=== PATIENT | female | born 1985 | race Hispanic/Latino ===

== ENCOUNTER 2016-12-14 12:23 | Emergency (ER) | payer OTHER ==
[2016-12-14 13:20] VITALS: RESP 15; TEMP 97.1
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
== END 2016-12-14 14:42 | disposition home or self-care (01) ==
LOC: ER 12:23
DX: S20.212A Contusion of left front wall of thorax, initial encounter (principal); S40.811A Abrasion of right upper arm, initial encounter; S50.11XA Contusion of right forearm, initial encounter; S40.022A Contusion of left upper arm, initial encounter; S39.012A Strain of muscle, fascia and tendon of lower back, initial encounter; Y04.2XXA Assault by strike against or bumped into by another person, initial encounter
CPT/HCPCS: 71020; 72100; 73090; 99283

== ENCOUNTER 2017-01-12 22:45 | Emergency (ER) | payer OTHER ==
[2017-01-12 22:57] LABS: BILIRUBIN,URINE NEGATIVE (NEG); CLARITY,URINE Slightly Clo (CLEAR); GLUCOSE, URINE (UA) NEGATIVE (NEG); LEUKOCYTE ESTERASE ,URINE MODERATE (NEG); NITRATE,URINE NEGATIVE (NEG); OCCULT BLOOD,URINE LARGE (NEG); PH,URINE 6.5 (5.0-8.5); PROTEIN,URINE 100 mg/dl (NEG)
[2017-01-12 22:58] LABS: URINE SAMPLE TYPE CLEAN CATCH URINE
[2017-01-12 23:01] LABS: BACTERIA,URINE MODERATE; RBC,URINE 25-30 /hpf; SQUAMOUS EPITHELIAL CELL,UR RARE; WBC,URINE 15-20
[2017-01-12] MEDS ORDERED: SULFAMETHOXAZOLE/TRIMETHOPRIM 800/160 MG TABLET PO ONE (23:13)
[2017-01-12] MEDS ORDERED: Phenazopyridine Tab 200 MG TAB PO ONE (23:21)
[2017-01-13 02:12] VITALS: RESP 16; TEMP 97.8
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
== END 2017-01-12 23:22 | disposition home or self-care (01) ==
LOC: ER 22:45
DX: N39.0 Urinary tract infection, site not specified (principal); R30.0 Dysuria
CPT/HCPCS: 81001; 81003; 87077; 87088; 87186; 99282

== ENCOUNTER 2017-06-01 22:55 | Emergency (ER) | payer OTHER ==
[2017-06-01 23:07] VITALS: RESP 18; TEMP 97.9
--- NOTE | 2017-06-02 03:45 | PDOC ---
Lower Extremity Injury HPI - General Chief Complaint: Lower Extremity Problem/Injury Stated Complaint: LEFT KNEE PAIN Date Seen by Provider: 06/01/17 Time Seen by Provider: 22:55 Source: POSITIVE: Patient Exam Limitations: POSITIVE: No limitations Nurse's Notes Reviewed & Considered: Yes - History of Present Illness Initial Comments: The patient is a 31-year-old female. She states that approximately 3-1/2 days [employer] she was jogging and she began to experience discomfort to her left knee, primarily over the medial and inferior aspect. She denies any falls or direct trauma. She did not hear any snap sure pops. No sensory, motor or vascular symptoms. She denies any hip or ankle or other pain. She's had a hysterectomy. Have you received a tetanus shot in the past 10 years?: Yes Body Location Affected: REPORTS: Lower Extremity (L) Timing: REPORTS: Constant, Gradual Duration: <1 week (Onset approximately 3-1/2 days [employer]) Severity: Moderate Quality: REPORTS: "Pain" Context of Injury: REPORTS: Other (Onset while running). DENIES: Fall, Twist, Direct Blow, Incision, Burn, Crush, Stab, Prolonged Pressure on Ext Location of Injury: REPORTS: Knee (L) Modifying Factors: improves with: Walking Associated Symptoms: DENIES: Unable to Bear Weight, Snapping, Popping Sensation , Became Dizzy, Fainted, Seizure, Other Any Prior Injuries Related to Current Complaint?: No - Patient Home Medications Home Medications: Home Medications Triamcinolone Acetonide [Kenalog-40] 1 ml SUBCUT ONCE #1 ml 05/30/17 Aspirin/Acetaminophen/Caffeine [Excedrin Extra Strength Caplet] 1 each PO PRN - Patient Allergies Allergies/Adverse Reactions: Allergies Allergy/AdvReac Type Severity Reaction Status Date / Time bupropion HCl Allergy hives Verified 06/01/17 22:58 [From Wellbutrin] ibuprofen Allergy angioedema Verified 06/01/17 22:58 dextromethorphan HBr AdvReac N V, Verified 06/01/17 22:58 [From Robitussin-DM] diarrhea guaifenesin AdvReac N V, Verified 06/01/17 22:58 [From Robitussin-DM] diarrhea Past Medical History - heen HEENT History: Other (please comment) Additional HEENT History: hole in right eardrum. CONTACTS AND GLASSES. Cardiovascular History: Denies History Respiratory History: Other (please comment) Additional Respiratory History: ALLERGIES Gastrointestinal History: Other (please comment) Additional Gastrointestinal History: Hx of a cholecystectomy. Genitourinary History: Kidney Stones, Other (please comment) Additional Genitourinary History: BILATRAL URETERAL STENTS Endocrine History: Denies History Musculoskeletal History: Back Pain, Carpal Tunnel Prosthesis or Implant: No Additional Musculoskeletal History: hx of left ankle tendon repair. Neurological History: Denies History Blood Disorders: Denies History Psychiatric History: Depression, Bi Polar Disorder, Anxiety Disorders History of Sexually Transmitted Diseases: No Female Reproductive History: Denies History Obstetrical History: Denies History Cancer History: Denies History In Past Year Been Physically Harmed or Verbally Threatened: No History of MDRO: Yes Type of MDRO: MRSA Other Type of MDRO: MRSA History of Other Communicable Diseases: No Tobacco Use: Current Every Day Smoker Alcohol Use: None Substance Use Type: None Previous Surgical History: Yes Type / Date of Surgery: COLONOSCOPY 11/2015. CHOLECYSTECTOMY 2005. BILAT TUBAL LIGATION 2012. LEFT ANKLE TENDON REPAIR. BILATERAL URETERAL STENTS Anesthesia Reactions: No Malignant Hyperthermia: No Significant Family History: No pertinent family hx Past Medical History Reviewed: Reviewed - No Changes ROS - Limitations ROS Limitations: No Limitations Constitution: REPORTS: Denies Symptoms Cardiovascular: REPORTS: Denies Cardiac Symptoms Respiratory: REPORTS: Denies Resp Symptoms Neurological: REPORTS: Denies Neuro Symptoms Gastrointestinal: REPORTS: Denies GI Symptoms Endocrine: REPORTS: Denies Symptoms Musculoskeletal: REPORTS: Joint Pain (Left knee), Recent Injury (As above) Genitourinary: REPORTS: Denies Symptoms Eyes: REPORTS: Denies Symptoms ENT: REPORTS: Denies Symptoms Skin: REPORTS: Denies Skin Symptoms Lympathic: REPORTS: Denies Lympathic Symptoms Immunologic: POSITIVE: Denies Symptoms Psychiatric: POSITIVE: Denies Psych Symptoms Lower Ext Complaint Exam - General Appearance General Appearance: POSITIVE: Alert, Cooperative, No Acute Distress, No Evidence of Trauma Reflexes: Patellar (L): 2+, Radial (R): 2+ - Extremities Lower Extremity: POSITIVE: Normal ROM, Normal Color, Normal Temperature, Skin Intact, No Evidence of Ischemia, Stable, Soft Tissue Tenderness, Bony Tenderness , Swelling (Mild, left knee), See Diagram. NEGATIVE: No Joint Swelling (Mild swelling left knee), Ecchymosis, Erythema, Deformity, Pulse Deficit, Limited ROM , Laxity of Ligaments, Joint Effusion, Hip Pain on Leg Movement Lower Extremity Ligament: POSITIVE: Pain on Medial Stress. NEGATIVE: Pain on Anterior Drawer, Pain on Posterior Drawer, Laxity on Anterior Drawer, Laxity w/ Posterior Drawer, Pain on Lateral Stress, Laxity on Medial Stress, Laxity on Lateral Stress Gait: POSITIVE: Antalgic Gait Neurovascular/Tendon: POSITIVE: Sensation Normal, Motor Normal, No Vascular Compromise Skin: POSITIVE: Warm, Dry - Neck / Back Neck/Back: POSITIVE: Normal Inspection, Non-Tender, Painless ROM - Respiratory / CVS Respiratory / CVS: POSITIVE: Chest Non Tender, No Ecchymosis, Breath Sounds Normal, No Respiratory Distress, Heart Sounds Normal, Regular Rate/Rhythm Peripheral Pulses: Radial (R): 2+, Radial (L): 2+, Dorsalis-pedis (R): 2+, Dorsalis-pedis (L): 2+ Images - Lower Extremities Lower Extremities: 1 - Area of pain on palpation and medial stress Procedures - Splinting Time Splint Applied: 23:25 Location: knee immobilizer, left Pre-Proc Neuro Vasc Exam: Normal Splint Type: Knee Immobilizer (Left) Splint Form: Long Extremity Applied By:: Can Solderer Lower Ext Complaint Progress - Results Reviewed by me Xrays/CTs/US Reviewed by me: Yes Discussed with Radiologist: No Radiology Findings: No fractures or dislocations seen by me; radiologist interpretation pending - Patient's Progress Pain Medication Addressed: POSITIVE: Yes (Recommended Advil or Tylenol) School/Work Release Addressed: POSITIVE: Not Applicable Re-Examine Time:: 23:35 Re-Examine Comment: Some improvement in discomfort after knee immobilizer placement Status: POSITIVE: Improved, Re-Examined - Consult Counseled: POSITIVE: Patient, RE: Radiology Results, RE: DX, RE: Need for F/U Patient Care Time - Estimated PCT Patient Care Time (In Minutes): 27 Vital Signs - Recent Vital Signs Vital Signs: Vital Signs (Last 8 hours) Temp Pulse Resp BP Pulse Ox 06/01/17 22:57 97.9 F 80 18 121/82 95 - VS Reviewed Vital Signs Reviewed: Yes Discharge Clinical Impression: Knee sprain Discharge Disposition: Discharged to Home Condition: Stable Patient Instructions Given at Discharge: Knee Sprain (ED), Knee Immobilizer (ED ) Additional Instructions: X-ray of your left knee is normal. You have no fractures or dislocations. I believe you have a sprain to your left knee. Please wear knee immobilizer for 10-14 days. You may remove this to shower. Reduce weightbearing. Elevate leg. Advil or Tylenol for pain. Follow-up with your primary care provider in 10-14 days if not improving. Return here as necessary. Follow Up With: HALEY ALTAMIRANO [Primary Care Provider] - (Instructions as above. Follow-up with your primary care provider. Return here as necessary.)
--- NOTE | 2017-06-02 11:58 | DI ---
LEFT KNEE, 06/01/2017 10:36 PM: Clinical History: Left knee pain. Previous Exam: 02/16/2014. 3 views are submitted. There is no acute soft tissue, osseous, or joint abnormality. There has been n o interval change. Reading: Normal left knee exam.
== END 2017-06-01 23:59 | disposition home or self-care (01) ==
LOC: ER 22:55
DX: S83.92XA Sprain of unspecified site of left knee, initial encounter (principal); Y93.02 Activity, running
CPT/HCPCS: 73562; 99282

== ENCOUNTER → 2017-06-11 | Outpatient (CLI) | payer OTHER ==
--- NOTE | 2017-06-11 19:53 | DI ---
MRI LEFT KNEE SCAN, 06/11/2017 12:52 PM: Clinical History: Left knee pain with decreased range of motion. Previous Exam: 02/19/2014. Technique: Axial, coronal, and sagittal PD and fat saturated PD; axial T1 weighted. There is no soft tissue edema. There is a very small joint effusion, slightly larger than a physiolog ic amount. Abnormally increased signal intensity is present throughout the medial tibial plateau and extending into the metaphysis of the proximal portion of the tibia medially. This hyperintensity is i ndicative of a bone contusion. No definite fracture line is identified. There is intermediate signal intensity in the anterior aspect of the medial collateral ligament and the medial patellofemoral liga ment, and at the attachment of the lateral collateral ligament to the lateral femoral condyle consist ent with chronic partial tears. The anterior aspect of both bundles of the anterior cruciate ligament shows increased signal intensity consistent with partial tears of both bundles. The posterior crucia te ligament is normal. The medial and lateral menisci and the quadriceps and popliteus tendons and th e tendons of the medial and lateral heads of the gastrocnemius muscle are normal. There is increased signal intensity in the proximal portion of the patellar tendon consistent with mild tendinosis. The articular surfaces of all 3 compartments are intact. Readin. There are partial tears of the MCL, ACL, LCL, and the medial patellofemoral ligament, probably ch ronic. A large bone contusion is present involving all of the medial tibial plateau and the mid calf cyst along the medial aspect of the tibia. There is mild tendinosis in the proximal portion of the pa tellar tendon. 2. The PCL, the medial and lateral menisci, the quadriceps and popliteus tendons in the tendons of t he medial and lateral heads of the gastrocnemius muscle are normal. The articular surfaces of all 3 c ompartments are intact.
== END ==
LOC: MRI 12:48
PROVIDERS: ATTEND Physician Assistant Surgical
DX: M25.562 Pain in left knee (principal); S83.422A Sprain of lateral collateral ligament of left knee, initial encounter; S83.412A Sprain of medial collateral ligament of left knee, initial encounter; S83.512A Sprain of anterior cruciate ligament of left knee, initial encounter
CPT/HCPCS: 73721